=== PATIENT | male | born 1995 | race Caucasian/White ===

== ENCOUNTER 2018-11-02 17:51 | Emergency (ER) | payer BC ==
--- NOTE | 2018-11-02 18:15 | UC ---
Skin Complaint HPI - HPI Summary HPI Summary: Patient presents to urgent care reporting concern for recurrent pilonidal cyst. Patient states he had one in May where he was treated with antibiotics in [place]. States it completely resolved. Patient states yesterday he knows little bit of discomfort. Today he noticed some drainage. No fevers or chills. No analgesia taken. Patient is not immunocompromised. No other complaints or concerns at this time. Patient's medications reviewed this visit. - History of Current Complaint Time Seen by Provider: 11/02/18 18:11 Stated Complaint: SKIN CONCERN LOWER BACK Hx Obtained From: Patient - Allergy/Home Medications Allergies/Adverse Reactions: Allergies Allergy/AdvReac Type Severity Reaction Status Date / Time No Known Allergies Allergy Verified 11/02/18 18:19 PMH/Surg Hx/FS Hx/Imm Hx Previously Healthy: Yes - Surgical History Surgical History: None - Family History Known Family History: Positive: Non-Contributory - Social History Occupation: Student Lives: With Family Alcohol Use: Occasionally Substance Use Type: None Review of Systems All Other Systems Reviewed And Are Negative: Yes Constitutional: Positive: Negative Skin: Positive: Other - pilodinal cyst ENT: Positive: Negative Respiratory: Positive: Negative Is Patient Immunocompromised?: No Physical Exam - Summary Physical Exam Summary: Vital Signs Reviewed: Yes A+Ox3, no distress Eyes: Conjunctiva Clear ENT: Hearing grossly normal neck: supple Respiratory: Positive: No respiratory distress, No accessory muscle use Cardiovascular: skin color reflect adequate perfusion abd soft + BS no guarding, no rebound Musculoskeletal Exam: LUZ x 4 without difficulty Neurological: Positive: Alert, ambulatory without difficulty Psychological: Positive: Normal Response To proivder Skin: Positive: just superior to gluteal cleft area of erythema and mild edema at cleft pt with small opening - able to mild mild odor purulent material - culture taken no induration, no fluctuance Triage Information Reviewed: Yes Course/Dx - Course Course Of Treatment: 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 last in may, not immunocompromised no fever VSs pt with small area of tenderness and open wound with drainage - culture taken no induration, no fluctuance recommend hot water soaks/epsom salts Augmentin f./u with surgery this week strict return precautions - Diagnoses Provider Diagnosis: Infected pilonidal cyst Discharge - Sign-Out/Discharge Documenting (check all that apply): Patient Departure All imaging exams completed and their final reports reviewed: No Studies - Discharge Plan Condition: Stable Disposition: HOME Prescriptions: Amoxicillin/Clavulanate TAB* [Augmentin TAB 875*] 875 mg PO BID #20 tab Patient Education Materials: Pilonidal Cyst (ED) Referrals: [facility] [Provider Group] (Okay to request a recheck in the [place] or [place] office [place]: [address] [place] [address] [address] [phone] ) No Primary Care Phys,[facility] [Primary Care Provider] - Additional Instructions: - Take antibiotics as prescribed until gone - Okay to alternate ibuprofen (Advil, Motrin) 600mg and tylenol every 3hours for pain or fever. Take with food. Do NOT take for more than 4-5 days - Take antibiotics as prescribed until gone - apply a sloppy wet, warm cloth to your wound 2-3 times a day. Okay to soak in warm water or epsom-salt soaks - Contact the surgery clinic TOMORROW to schedule a recheck this week- you may be seen at the [place] or [place] offices - if you have increased pain, swelling, fever, vomiting or any other concerns it is recommended you go to the emergency department for further treatment and evaluation - Billing Disposition and Condition Condition: STABLE Disposition: Home
[2018-11-02 18:20] VITALS: BP 122/80
== END 2018-11-02 19:00 | disposition home or self-care (01) ==
LOC: UCCORT 17:51
DX: L05.91 Pilonidal cyst without abscess (principal)
CPT/HCPCS: 87070; 87205; 87640; 87641; 99202; G0463